=== PATIENT | male | born 1935 | race Caucasian/White ===

== ENCOUNTER 2018-03-25 02:31 | Observation (INO) ==
[2018-03-25 07:09] LABS: Hematocrit 26.2 % (37.5-50.1); Mean Corpuscular HGB Conc 34.4 g/dL (31.6-35.5); Mean Corpuscular Hemoglobin 32.1 pg (28.0-33.3); Mean Corpuscular Volume 93.6 fL (83.0-100.0); Mean Platelet Volume 8.6 fL (9.4-12.4); Platelet Count 228 K/mcL (140-400); Red Cell Distribution Width 17.4 % (11.5-14.5)
[2018-03-25 07:29] LABS: Alanine Aminotransferase 10 Units/L (7-52); Albumin 3.6 g/dL (3.5-5.7); Albumin/Globulin Ratio 1.6 (1.1-2.2); Alkaline Phosphatase 42 Units/L (34-104); Aspartate Amino Transferase 19 Units/L (13-39); BUN/Creatinine Ratio 21 (6-26); Bilirubin,Total 0.5 mg/dL (0.3-1.0); Blood Urea Nitrogen 23 mg/dL (8-23); Calcium 8.7 mg/dL (8.6-10.3); Carbon Dioxide 22 mEq/L (23-29); Chloride 104 mEq/L (98-107); Globulin 2.2 g/dL (2.4-3.5); Glucose 100 mg/dL (70-105); Osmolality,Calculated 276 (280-300); Potassium 3.9 mEq/L (3.5-5.1); Sodium 131 mEq/L (136-145); Total Protein 5.8 g/dL (6.4-8.9); eGFR For African Americans > 60 (> 60); eGFR For Non-African Americans > 60 (> 60)
--- NOTE | 2018-03-25 10:20 | Internal Med History&Physical ---
Date of Encounter: 03/25/18 Time of Encounter: 09:00 Internal Medicine - H&P: HPI Chief complaint: Shortness of breath/generalized weakness Admitted From: Home Plans for Post Hospital Care: Home History of present illness: Patient is 82-year-old male with past medical history significant for AVM seen by GI specialist Dr. Burr as an outpatient who presents to the ER on 03/25 due to weakness and shortness of breath. Patient reports that for approximately 1 week he has felt weak and has developed shortness of breath which is gradually gotten worse. Patient was taken to [facility] ER and was found to have a hemoglobin of 6.7 and was giving 1 unit of packed red blood cells. Patient was then transferred to [facility] for further evaluation and workup. Patient arrived to the ICU at [facility] he was given one unit of packed red blood cells and his hemoglobin is now 9.0. Patient is hemodynamically stable. GI has been consulted for consideration for EGD. Past Med Surg Social Fam HX - Past Medical History Medical history: COPD, hyperlipidemia, hypertension Additional medical history: CKD. anemia. former smoker (quit 1991). bronchitis. constipation. hyponatremia. PNA. 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 - Social History Smoking Status: Former smoker Smokeless Tobacco Status: No Alcohol use: none Drug use: none - Additional Family History Additional family history: Noncontributory Internal Medicine - H&P: Meds Albuterol Neb [Proventil Neb] 2.5 mg IH Q4HR PRN 03/25/18 [History] Albuterol Sulfate [Proair Hfa] 2 puff IH Q4H PRN 03/25/18 [History] Allopurinol [Zyloprim 100 MG] 100 mg PO DAILY 03/25/18 [History] Amlodipine Besylate [Amlodipine Besylate] 10 mg PO DAILY 03/25/18 [History] Aspirin [Lo-Dose Aspirin EC] 81 mg PO DAILY 03/25/18 [History] Budesonide/Formoterol 80/4.5 [Symbicort 80/4.5] 2 puff PO BID 03/25/18 [History ] Calcium Polycarbophil [Fiber Laxative] 1,250 mg PO DAILY 03/25/18 [History] Candesartan Cilexetil [Atacand] 32 mg PO QPM 03/25/18 [History] Clotrimazole 1% CRM [Lotrimin 1%] 1 appl TP BID 03/25/18 [History] Cyclobenzaprine HCl 10 mg PO BID PRN 03/25/18 [History] Docusate [Colace] 200 mg PO DAILY PRN 03/25/18 [History] Ferrous Sulfate [Iron] 325 mg PO DAILY 03/25/18 [History] Finasteride [Proscar] 5 mg PO DAILY 03/25/18 [History] Levothyroxine Sodium [Levoxyl] 56 mcg PO QWEEK 03/25/18 [History] Levothyroxine Sodium [Levoxyl] 112 mcg PO DAILY 03/25/18 [History] Metoprolol Succinate [Toprol Xl] 50 mg PO BID 03/25/18 [History] Montelukast [Singulair] 10 mg PO HS 03/25/18 [History] Multivitamin [One Daily Multivitamin] 1 tab PO DAILY 03/25/18 [History] Omeprazole [Omeprazole] 40 mg PO DAILY 03/25/18 [History] Pravastatin Sodium [Pravachol] 80 mg PO 4XW 03/25/18 [History] Propylene Glycol/Peg 400 [Systane 0.3-0.4% Eye Drops] 1 - 2 drop BOTH EYES DAILY PRN 03/25/18 [History] Silodosin [Rapaflo] 4 mg PO DAILY 03/25/18 [History] Sodium Chloride/Aloe Nasal Gel [[place] Saline Nasal Gel] 1 spr NS BID PRN 03/25/18 [History] Triamcinolone Acet 0.1% OINT [Kenalog] 1 appl TP BID 03/25/18 [History] Vit A/Vit C/Vit E/Zinc/Copper [Preservision Areds Tablet] 1 tab PO DAILY [History] Zolpidem Tartrate [Zolpidem Tartrate] 5 - 10 mg PO HS 03/25/18 [History] raNITIdine HCl [Zantac] 150 mg PO HS 03/25/18 [History] valACYclovir [Valtrex] 500 mg PO Q48H 03/25/18 [History] 3 Allergy/AdvReac Type Severity Reaction Status Date / Time No Known Allergies Allergy Verified 03/25/18 09:57 All Systems PM: A 10-system review of systems was performed and is negative for pertinent findings except as documented above in the HPI. - Constitutional Vitals: Temp Pulse Resp BP Pulse Ox 97.7 F 67 16 126/71 99 03/25/18 08:01 03/25/18 10:00 03/25/18 10:00 03/25/18 10:00 03/25/18 10:00 General appearance: Present: A&O X 3, no acute distress, answers questions appropriately - Eye Eye exam: Present: normal appearance - ENT ENT exam: Present: mucous membranes moist - Respiratory Respiratory exam: Present: CTAB. Absent: accessory muscle use, rales, rhonchi, wheezes - Cardiovascular Cardiovascular exam: Present: RRR, +S1, +S2. Absent: diastolic murmur, gallop, rubs, systolic murmur - GI/Abdominal GI/Abdominal exam: Present: soft. Absent: tenderness - Extremities Exam Extremities exam: Absent: pedal edema - Neurological Exam Neurological exam: Present: normal gait - Psychiatric Psychiatric exam: Present: normal mood - Skin Skin exam: Present: pallor Internal Med - H&P Results - Labs CBC & Chem 7: 03/25/18 06:56 03/25/18 06:56 Labs: Short CBC 03/25/18 Range/Units 06:56 WBC 5.3 (4.3-11.1) K/mcL Hgb 9.0 L (12.9-16.9) g/dL Hct 26.2 L (37.5-50.1) % Plt Count 228 (140-400) K/mcL BMP 03/25/18 06:56 Sodium 131 L Potassium 3.9 Chloride 104 Carbon Dioxide 22 L BUN 23 Creatinine 1.07 Glucose 100 Calcium 8.7 Liver Function 03/25/18 Range/Units 06:56 Total Bilirubin 0.5 (0.3-1.0) mg/dL AST 19 (13-39) Units/L ALT 10 (7-52) Units/L Alkaline Phosphatase 42 (34-104) Units/L Albumin 3.6 (3.5-5.7) g/dL - Assessment and plan (1) Anemia Current Visit: Yes Status: Acute Assessment and plan: Patient found to have a hemoglobin of 6.7 at [facility] and was giving 1 unit of packed red blood cells. Patient was then transferred to [facility] and received an additional 1 unit of packed red blood cells in the ICU at [facility] now with a hemoglobin of 9.0 Patient is hemodynamically stable; will monitor serial H&H's GI consulted for consideration for EGD. Qualifiers: Chronic kidney disease stage: unspecified stage Qualified Code(s): N18.9 - Chronic kidney disease, unspecified; D63.1 - Anemia in chronic kidney disease (2) HTN (hypertension) Current Visit: Yes Status: Acute Assessment and plan: Controlled; continue home medications Qualifiers: Hypertension type: essential hypertension Qualified Code(s): I10 - Essential (primary) hypertension (3) HLD (hyperlipidemia) Current Visit: Yes Status: Acute Assessment and plan: Continue statin Qualifiers: Hyperlipidemia type: unspecified Qualified Code(s): E78.5 - Hyperlipidemia , unspecified (4) Hypothyroid Current Visit: Yes Status: Acute Assessment and plan: Continue home dose of levothyroxine Qualifiers: Hypothyroidism type: unspecified Qualified Code(s): E03.9 - Hypothyroidism , unspecified (5) GERD (gastroesophageal reflux disease) Current Visit: Yes Status: Acute Assessment and plan: T home dose of PPI and H2 jamir Qualifiers: Esophagitis presence: esophagitis presence not specified Qualified Code(s) : K21.9 - Gastro-esophageal reflux disease without esophagitis (6) DVT prophylaxis Current Visit: Yes Status: Acute Assessment and plan: SCDs - Time Spent With Patient Total time spent is greater than 50% in coordination of care (as documented) at patient's floor/unit and/or counseling patient:
[2018-03-25] MEDS ORDERED: Naloxone 0.4 MG/ML INJ IVP PRN (10:47)
[2018-03-25] MEDS ORDERED: Albuterol 2.5 MG/3 ML NEBULIZER IH PRN (10:55)
[2018-03-25] MEDS ORDERED: valACYclovir 500 MG TABLET PO SCH ×2 (11:00→21:00)
--- NOTE | 2018-03-25 12:19 | Gastroenterology Consult Note ---
<Thiago Levi - Last Filed: 03/25/18 12:17> Date of Encounter: 03/25/18 Time of Encounter: 10:40 - Assessment and plan (1) Anemia Current Visit: Yes Status: Acute Assessment and plan: Hgb 6.7 at OSH and transfused 1 unit PRBC. Hgb 9 on admission here. Continue to monitor CBC and transfuse PRBC as needed. Plan for enteroscopy today to r/o esophagitis, gastritis, duodenitis, PUD, MW tear, or AVM. Keep patient NPO. Qualifiers: Chronic kidney disease stage: unspecified stage Qualified Code(s): N18.9 - Chronic kidney disease, unspecified; D63.1 - Anemia in chronic kidney disease (2) GERD (gastroesophageal reflux disease) Current Visit: Yes Status: Acute Assessment and plan: Continue PPI. Patient educated regarding lifestyle modifications including: (1) avoidance of foods that may precipitate reflux (eg, coffee, alcohol, chocolate, fatty foods) . (2) avoidance of acidic foods that may precipitate heartburn (eg, citrus, carbonated drinks, spicy foods). (3) adoption of behaviors that may reduce esophageal acid exposure (see weight loss, smoking cessation, raising the head of the bed, and avoiding recumbency for 2-3 hours after meals). Qualifiers: Esophagitis presence: esophagitis presence not specified Qualified Code(s) : K21.9 - Gastro-esophageal reflux disease without esophagitis - Time Spent With Patient Total time spent is greater than 50% in coordination of care (as documented) at patient's floor/unit and/or counseling patient: GI History of Present Illness - Data of Consult Patient: new to practice Consult date: 03/25/18 Requesting Physician: Eliud Crews MD - Consult Narrative Reason for consult: Drop in Hgb History of present illness: Mr. Marin is a 82 year old male with PMHx of COPD, HLD, HTN, CKD, anemia, and AVM seen by GI specialist Dr. Burr. Pt presented to the ED for complaints of weakness and shortness of breath the has progessively worsened. Patient was taken to [facility] and was found to have a hemoglobin of 6.7 and was given 1 unit of PRBC. He was transferred here for further evaluation. Hgb 9 on admission here. Pt admits to black stool, but is taking iron supplement daily. He denies fever, chills, chest pain, abdominal pain, nausea, vomiting, hematemesis, hematochezia, diarrhea, or constipation. Procedures: EGD, colonoscopy, and capsule endoscopy with AVM treated by Dr. Burr. NSAIDs: ASA Anticoagulation: None Past Med Surg Social Fam HX - Past Medical History Medical history: COPD, hyperlipidemia, hypertension Additional medical history: CKD. anemia. former smoker (quit 1991). bronchitis. constipation. hyponatremia. PNA. 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 - Social History Smoking Status: Former smoker Smokeless Tobacco Status: No Alcohol use: none Drug use: none - Gastrointestinal Gastrointestinal: Present: as per HPI - Constitutional Constitutional: as per HPI - EENT Eyes: as per HPI Ears: Present: as per HPI Nose, mouth and throat: Present: as per HPI - Cardiovascular Cardiovascular ROS: Present: as per HPI - Respiratory Respiratory IM: Present: as per HPI - Genitourinary Genitourinary: Absent: change in color, Urinary frequency - Neurological ROS Neurological GI: Present: as per HPI - Hematologic/Lymphatic Hematologic/Lymphatic pediatric: Present: as per HPI - Musculoskeletal Musculoskeletal ROS GI: Present: as per HPI - Integumentary Integumentary GI: Present: as per HPI - Psychiatric ROS Psychiatric GI: Present: as per HPI - Endocrine Endocrine IM: Present: as per HPI - Constitutional Vitals: Temp Pulse Resp BP Pulse Ox 97.7 F 68 20 135/64 96 03/25/18 08:01 03/25/18 11:53 03/25/18 11:00 03/25/18 11:00 03/25/18 11:00 General appearance: Present: cooperative, A&O X 3, no acute distress, answers questions appropriately - Head Head exam: Present: atraumatic, normocephalic - Eye Eye exam: Present: sclera anicteric - ENT ENT exam: Present: mucous membranes dry - Neck Neck exam general surgery: Present: normal inspection, trachea midline - Respiratory Respiratory exam: Present: CTAB. Absent: rales, rhonchi - Cardiovascular Cardiovascular exam: Present: RRR, +S1, +S2 - GI/Abdominal GI/Abdominal exam: Present: soft, no peritoneal signs. Absent: distended, firm , guarding, tenderness - Rectal Rectal exam: Present: deferred - Extremities Exam Extremities exam: Present: warm - Neurological Exam Neurological exam: Present: no focal deficits - Psychiatric Psychiatric exam: Present: normal affect, normal mood - Skin Skin exam: Present: dry, intact, normal color, warm Results - Labs CBC & Chem 7: 03/25/18 06:56 03/25/18 06:56 Labs: Last Result Calcium 8.7 mg/dL (8.6-10.3) 03/25/18 06:56 Entire Visit Hgb 9.0 g/dL (12.9-16.9) L 03/25/18 06:56 Hct 26.2 % (37.5-50.1) L 03/25/18 06:56 Total Bilirubin 0.5 mg/dL (0.3-1.0) 03/25/18 06:56 AST 19 Units/L (13-39) 03/25/18 06:56 ALT 10 Units/L (7-52) 03/25/18 06:56 Consult Discharge Plan - Plan Referrals: NONE,PCP [Primary Care Provider] - Nino Guillen [Family Provider] - <Stanislav Manley - Last Filed: 03/25/18 18:09> Date of Encounter: 03/25/18 Time of Encounter: 13:00 - Time Spent With Patient Total time spent is greater than 50% in coordination of care (as documented) at patient's floor/unit and/or counseling patient: GI History of Present Illness - Data of Consult Requesting Physician: Eliud Crews MD - Consult Narrative History of present illness: Mr. Marin is a 82 year old male - Constitutional Vitals: Temp Pulse Resp BP Pulse Ox 98.4 F 79 16 136/98 96 03/25/18 12:00 03/25/18 15:00 03/25/18 15:00 03/25/18 15:00 03/25/18 15:00 Results - Labs CBC & Chem 7: 03/25/18 12:10 03/25/18 06:56 Labs: Last Result Calcium 8.7 mg/dL (8.6-10.3) 03/25/18 06:56 Entire Visit Hgb 8.9 g/dL (12.9-16.9) L 03/25/18 12:10 Hct 27.0 % (37.5-50.1) L 03/25/18 12:10 Total Bilirubin 0.5 mg/dL (0.3-1.0) 03/25/18 06:56 AST 19 Units/L (13-39) 03/25/18 06:56 ALT 10 Units/L (7-52) 03/25/18 06:56 - Attending Attestation I have personally performed a face to face evaluation on this patient. I have reviewed and agree with the care plan. History and Exam by me shows: Patient seen patient with anemia/melena and previous history of AVM. Denies any abdominal pain and on examination abdomen is soft. Rec: Enteroscopy to rule out upper GI causes for his anemia/melena.
[2018-03-25 12:32] LABS: Hemoglobin 8.9 g/dL (12.9-16.9)
[2018-03-25] MEDS ORDERED: Propofol 500 MG/50 ML INFUS..BTL ONE (13:10)
[2018-03-25] MEDS ORDERED: Lidocaine -MPF 2% 2 ML VIAL ONE (13:12)
--- NOTE | 2018-03-25 14:04 | Anesthesia Evaluation PreOp ---
Date of Encounter: 03/25/18 Time of Encounter: 14:18 - Past History Planned Operation: Push enteroscopy Cardiac History: HTN, Hyperlipidemia, Other (Heart cath x2, last 2013, no stents ) Pulmonary History: Former smoker, COPD (Inhalers, no home O2) CARPENTER MATE History: Denies Any Significant HX Other Medical History: Renal (CKD), Bleeding (AVM, Anemia, Hb 6.7 initially, today 9.0 post 1 PRBC at OSH), Thyroid, GERD (Controlled), Other (History of VC tumor, post XRT, hyponatremia) Anesthesia History: No Prior Anesthetic Complications, Past Anesthesia Alcohol Use: none Drug use: none Medications and Allergies Albuterol Neb [Proventil Neb] 2.5 mg IH Q4HR PRN 03/25/18 [History] Albuterol Sulfate [Proair Hfa] 2 puff IH Q4H PRN 03/25/18 [History] Allopurinol [Zyloprim 100 MG] 100 mg PO DAILY 03/25/18 [History] Amlodipine Besylate [Amlodipine Besylate] 10 mg PO DAILY 03/25/18 [History] Aspirin [Lo-Dose Aspirin EC] 81 mg PO DAILY 03/25/18 [History] Budesonide/Formoterol 80/4.5 [Symbicort 80/4.5] 2 puff PO BID 03/25/18 [History ] Calcium Polycarbophil [Fiber Laxative] 1,250 mg PO DAILY 03/25/18 [History] Candesartan Cilexetil [Atacand] 32 mg PO QPM 03/25/18 [History] Clotrimazole 1% CRM [Lotrimin 1%] 1 appl TP BID 03/25/18 [History] Cyclobenzaprine HCl 10 mg PO BID PRN 03/25/18 [History] Docusate [Colace] 200 mg PO DAILY PRN 03/25/18 [History] Ferrous Sulfate [Iron] 325 mg PO DAILY 03/25/18 [History] Finasteride [Proscar] 5 mg PO DAILY 03/25/18 [History] Levothyroxine Sodium [Levoxyl] 56 mcg PO TU 03/25/18 [History] Levothyroxine Sodium [Levoxyl] 112 mcg PO DAILY 03/25/18 [History] Metoprolol Succinate [Toprol Xl] 50 mg PO BID 03/25/18 [History] Montelukast [Singulair] 10 mg PO HS 03/25/18 [History] Multivitamin [One Daily Multivitamin] 1 tab PO DAILY 03/25/18 [History] Omeprazole [Omeprazole] 40 mg PO DAILY 03/25/18 [History] Pravastatin Sodium [Pravachol] 80 mg PO 4XW 03/25/18 [History] Propylene Glycol/Peg 400 [Systane 0.3-0.4% Eye Drops] 1 - 2 drop BOTH EYES DAILY PRN 03/25/18 [History] Silodosin [Rapaflo] 4 mg PO DAILY 03/25/18 [History] Sodium Chloride/Aloe Nasal Gel [[place] Saline Nasal Gel] 1 spr NS BID PRN 03/25/18 [History] Triamcinolone Acet 0.1% OINT [Kenalog] 1 appl TP BID 03/25/18 [History] Vit A/Vit C/Vit E/Zinc/Copper [Preservision Areds Tablet] 1 tab PO DAILY [History] Zolpidem Tartrate [Zolpidem Tartrate] 10 mg PO HS 03/25/18 [History] raNITIdine HCl [Zantac] 150 mg PO HS 03/25/18 [History] valACYclovir [Valtrex] 500 mg PO Q48H 03/25/18 [History] 3 Allergy/AdvReac Type Severity Reaction Status Date / Time No Known Allergies Allergy Verified 03/25/18 09:57 - Meds/Allergy Pre-op Review Medications Reviewed: Yes Allergies Reviewed: Yes Beta Blockers on Current Med List: Yes Anesthesia Results - Labs 03/25/18 12:10 03/25/18 06:56 Anesthesia Exam O2 Sat Height 1.83 m Weight 91.5 kg Vital Signs Temp Pulse Resp BP Pulse Ox 98.0 F 70 22 159/88 97 03/25/18 04:59 03/25/18 04:59 03/25/18 04:59 03/25/18 04:59 03/25/18 04:59 - HEENT Pupil (Motor): Pupils equal Mallampati: II Teeth: Missing Denture Type: Upper: Complete, Lower: Partial Oral Opening: Greater than 3 - CARPENTER MATE LOC: Oriented - Cardiac Rhythm: Regular - Pulmonary Breath Sounds: bilateral Clear Anesthesia Assess/Plan ASA Score: 4 Modified [place] Scale for Level of Consciousness: Cooperative, oriented, and tranquil Anesthetic Plan: MAC Monitoring Plan: Standard Monitors
[2018-03-25 18:26] LABS: Hemoglobin 9.4 g/dL (12.9-16.9)
[2018-03-25] MEDS: Pantoprazole 40 MG in 0.9 % Sodium Chloride Mini Bag 100 ML IVC SCH ×2 (18:36→22:34)
[2018-03-25] MEDS: Metoprolol XL (24 HR) Succ 50 MG TAB.ER.24H PO SCH (20:29)
[2018-03-25] MEDS ORDERED: Famotidine 20 MG TABLET PO SCH (21:00)
[2018-03-26] MEDS: Pantoprazole 40 MG in 0.9 % Sodium Chloride Mini Bag 100 ML IVC SCH ×2 (03:45→08:07)
[2018-03-26 06:25] LABS: Basophils % 0.3 %; Eosinophils % 0.2 %; Hematocrit 26.3 % (37.5-50.1); Hemoglobin 9.3 g/dL (12.9-16.9); Immature Granulocytes % 0.6 % (0-4); Lymphocytes # 1.1 K/mcL (0.6-4.6); Lymphocytes % 10.6 %; Mean Corpuscular HGB Conc 35.4 g/dL (31.6-35.5); Mean Corpuscular Hemoglobin 33.2 pg (28.0-33.3); Mean Corpuscular Volume 93.9 fL (83.0-100.0); Mean Platelet Volume 9.1 fL (9.4-12.4); Neutrophils # 8.6 K/mcL (1.6-8.9); Platelet Count 238 K/mcL (140-400); Red Cell Distribution Width 18.4 % (11.5-14.5); Segmented Neutrophils % 79.3 %
[2018-03-26 06:46] LABS: BUN/Creatinine Ratio 15 (6-26); Blood Urea Nitrogen 18 mg/dL (8-23); Calcium 8.3 mg/dL (8.6-10.3); Carbon Dioxide 23 mEq/L (23-29); Chloride 102 mEq/L (98-107); Glucose 102 mg/dL (70-105); Osmolality,Calculated 276 (280-300); Sodium 132 mEq/L (136-145); eGFR For African Americans > 60 (> 60); eGFR For Non-African Americans 59 (> 60)
[2018-03-26] MEDS: Metoprolol XL (24 HR) Succ 50 MG TAB.ER.24H PO SCH (08:06)
[2018-03-26] MEDS ORDERED: amLODIPine 5 MG TABLET PO SCH (09:00)
[2018-03-26] MEDS ORDERED: Finasteride 5 MG TABLET PO SCH (09:00)
[2018-03-26 11:33] VITALS: BP 136/65
--- NOTE | 2018-03-26 14:43 | Discharge Summary ---
- NOTES TO OUTPATIENT PROVIDER Notes to Outpatient Provider: Hemoglobin 6.7 was transfused with 2 units hemoglobin 9 up to 9.3 on discharge underwent EGD-dieulofy lesion active bleeding was found in the duodenal bulb to hemostatic clips were placed was on PPI drip for 24 hour-discharged on PPI follow-up with GI-monitor CBC Orders not resulted at time of discharge: Pending orders 03/25/18 14:39 Surgical Pathology [PTH] Routine Date of Encounter: 03/26/18 Time of Encounter: 14:40 - Discharge Diagnosis (1) Anemia Priority: Primary Status: Acute Qualifiers: Anemia type: due to chronic kidney disease Chronic kidney disease stage: unspecified stage Qualified Code(s): N18.9 - Chronic kidney disease, unspecified; D63.1 - Anemia in chronic kidney disease (2) HTN (hypertension) Priority: Secondary Status: Acute Qualifiers: Hypertension type: essential hypertension Qualified Code(s): I10 - Essential (primary) hypertension (3) HLD (hyperlipidemia) Priority: Secondary Status: Acute Qualifiers: Hyperlipidemia type: unspecified Qualified Code(s): E78.5 - Hyperlipidemia , unspecified (4) Hypothyroid Priority: Secondary Status: Acute Qualifiers: Hypothyroidism type: unspecified Qualified Code(s): E03.9 - Hypothyroidism , unspecified (5) GERD (gastroesophageal reflux disease) Priority: Secondary Status: Acute Qualifiers: Esophagitis presence: esophagitis presence not specified Qualified Code(s) : K21.9 - Gastro-esophageal reflux disease without esophagitis Hospital course: Mr. Marin is a 82 year old male past medical history of COPD hyperlipidemia hypertension AVM seen by GI specialist Dr. Burr as an outpatient he presented to the ER complaints of weakness and shortness of breath for approximately one week. He originally presented to [facility] emergency room was found to have a hemoglobin of 6.7. He was given 1 unit of PRBCs and was transferred to [facility] for further evaluation and workup. He was given another unit of blood and his hemoglobin is up to 9 on admission. 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 Clips were placed laminitis with oozing of blood he was on a PPI for 24 hours clear liquids H&H has been stable -he is tolerating solid foods vital signs are stable we will discharge patient on PPI he will follow-up with GI as well as primary care provider. I did review medications as well as follow-up with the patient who verbalized understanding. Patient is ready for discharge - Time Spent with Patient Total time spent providing and/or coordinating discharge services: - Discharge Medications Home Medications: Albuterol Neb [Proventil Neb] 2.5 mg IH Q4HR PRN 03/25/18 [History] Albuterol Sulfate [Proair Hfa] 2 puff IH Q4H PRN 03/25/18 [History] Allopurinol [Zyloprim 100 MG] 100 mg PO DAILY 03/25/18 [History] Amlodipine Besylate 10 mg PO DAILY 03/25/18 [History] Aspirin [Lo-Dose Aspirin EC] 81 mg PO DAILY 03/25/18 [History] Budesonide/Formoterol 80/4.5 [Symbicort 80/4.5] 2 puff PO BID 03/25/18 [History ] Calcium Polycarbophil [Fiber Laxative] 1,250 mg PO DAILY 03/25/18 [History] Candesartan Cilexetil [Atacand] 32 mg PO QPM 03/25/18 [History] Clotrimazole 1% CRM [Lotrimin 1%] 1 appl TP BID 03/25/18 [History] Cyclobenzaprine HCl 10 mg PO BID PRN 03/25/18 [History] Docusate [Colace] 200 mg PO DAILY PRN 03/25/18 [History] Ferrous Sulfate [Iron] 325 mg PO DAILY 03/25/18 [History] Finasteride [Proscar] 5 mg PO DAILY 03/25/18 [History] Levothyroxine Sodium [Levoxyl] 56 mcg PO TU 03/25/18 [History] Levothyroxine Sodium [Levoxyl] 112 mcg PO DAILY 03/25/18 [History] Metoprolol Succinate [Toprol Xl] 50 mg PO BID 03/25/18 [History] Montelukast [Singulair] 10 mg PO HS 03/25/18 [History] Multivitamin [One Daily Multivitamin] 1 tab PO DAILY 03/25/18 [History] Omeprazole 40 mg PO DAILY 03/25/18 [History] Pravastatin Sodium [Pravachol] 80 mg PO 4XW 03/25/18 [History] Propylene Glycol/Peg 400 [Systane 0.3-0.4% Eye Drops] 1 - 2 drop BOTH EYES DAILY PRN 03/25/18 [History] Silodosin [Rapaflo] 4 mg PO DAILY 03/25/18 [History] Sodium Chloride/Aloe Nasal Gel [[place] Saline Nasal Gel] 1 spr NS BID PRN 03/25/18 [History] Triamcinolone Acet 0.1% OINT [Kenalog] 1 appl TP BID 03/25/18 [History] Vit A/Vit C/Vit E/Zinc/Copper [Preservision Areds Tablet] 1 tab PO DAILY [History] Zolpidem Tartrate 10 mg PO HS 03/25/18 [History] raNITIdine HCl [Zantac] 150 mg PO HS 03/25/18 [History] valACYclovir [Valtrex] 500 mg PO Q48H 03/25/18 [History] Allergies/Adverse Reactions: 3 Allergy/AdvReac Type Severity Reaction Status Date / Time No Known Allergies Allergy Verified 03/25/18 09:57 Date of admission: 03/25/18 04:45 Primary care physician: Yamini Ryan DO Consults: 03/25/18 08:47 Consult to Gastroenterology [CONS] Routine Consulting Provider: Gastroenterology Jacque Reason for Consult: Drop in Hgb Time Notified: 08:48 Call Completed: Yes Discharging clinician: Pat Arguello Anticipated date of discharge: 03/26/18 - Constitutional Vitals: Temp Pulse Resp BP Pulse Ox 98.3 F 81 16 136/65 97 03/26/18 11:32 03/26/18 11:32 03/26/18 11:32 03/26/18 11:32 03/26/18 11:32 General appearance: Present: A&O X 3, no acute distress, answers questions appropriately - Head Head exam: Present: atraumatic, normocephalic - Eye Eye exam: Present: PERRL, conjuntiva pink, sclera anicteric Pupils: Present: PERRL - Neck Neck exam general surgery: Present: supple, trachea midline. Absent: lymphadenopathy - Respiratory Respiratory exam: Present: CTAB. Absent: accessory muscle use, rales, rhonchi, wheezes - Cardiovascular Cardiovascular exam: Present: RRR, +S1, +S2. Absent: diastolic murmur, gallop, rubs, systolic murmur - GI/Abdominal GI/Abdominal exam: Present: normal bowel sounds, soft, no peritoneal signs. Absent: distended, tenderness - Extremities Exam Extremities exam: Present: warm, radial pulses palpable and symmetrical. Absent : calf tenderness, cyanotic, pedal edema - Neurological Exam Neurological exam: Present: CN II-XII intact, oriented X3, no focal deficits. Absent: pronater drift, facial droop, speech deficit - Skin Skin exam: Present: dry, intact - Patient Status Disposition: Home, Self-Care Condition: Good Functional capacity at discharge: independent ambulation Overall status at discharge: patient is back to baseline - Discharge Instructions Instructions: Gastrointestinal Bleeding (DC), Gastrointestinal Bleeding (GEN), Upper Gastrointestinal Endoscopy (DC), Anemia (DC), Anemia (GEN) Follow Up With: Mark Burr MD [Non-Partnered Physician] - Jami Alicea MD [Non-Partnered Physician] - 03/30/18 10:40 am Stanislav Manley MD [Partnered Physician] - (HOSPITAL FOLLOW UP APPOINTMENT REQUESTED. OUR OFFICES WILL CALL YOU WITH AN APPOINTMENT TIME AND DATE) - Diet and Activity Activity: increase activity as tolerated Diet: advance to your usual diet - VTE Reasons for not Prescribing Prophylaxis: Medical contraindication
== END 2018-03-26 18:10 | disposition home or self-care (01) ==
LOC: ICNU → 3BNU 18:30
PROVIDERS: ADMIT Hospitalist; ATTEND Family Medicine